=== PATIENT | female | born 1965 | race Caucasian/White ===

== ENCOUNTER 2017-05-10 07:38 | Day surgery (SDC) | payer BC, OTHER ==
--- NOTE | 2017-04-29 09:18 | HP ---
HISTORY AND PHYSICAL: DATE OF SURGERY/ADMISSION: 05/10/17 [facility] DATE OF OFFICE VISIT: 04/25/17 ATTENDING SURGEON: Dr. Lock (DICTATED BY SHAJI MORGAN) PROCEDURE: Right wrist ganglion cyst resection. CHIEF COMPLAINT: Right wrist pain. 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 The patient states that this pain has gotten worse over time and has elected to undergo a right ganglion cyst removal on 05/10/17. PAST MEDICAL HISTORY: 1. Depression. 2. Anxiety. 3. Chronic headache. PAST SURGICAL HISTORY: 1. Neck fusion approximately 10 years ago. 2. Appendectomy. 3. Hysterectomy. 4. Kidney stone resection. 5. Rhinoplasty after trauma. 6. [place] teeth extraction. MEDICATIONS: 1. Wellbutrin 300 mg p.o. daily. 2. Motrin p.r.n. ALLERGIES: 1. CLARITHROMYCIN. 2. CYMBALTA. 3. ERYTHROMYCIN. 4. NAPROXEN. 5. ULTRAM. 6. VALIUM. FAMILY MEDICAL HISTORY: Mother with lung cancer. SOCIAL HISTORY: Positive for rare alcohol use. No tobacco use. REVIEW OF SYSTEMS: General: Negative for fevers, chills, night sweats. No difficulty with anesthesia. HEENT: Positive for chronic headache. Negative for lightheadedness or syncopal episodes. Integument: Negative for abrasions, lesions or open wounds or sores. Cardiothoracic: Negative for hypertension, chest pain, palpitations or edema. Pulmonary: Negative for shortness of breath with exertion, or COPD. GI: Negative for nausea, vomiting, constipation , diarrhea or GERD. : Negative for nocturia, urinary frequency, urgency. Positive for history of kidney stones. Negative for history of UTI. Musculoskeletal: Positive for right wrist pain. Neuro: Negative for paresthesias or numbness. No history of seizure, stroke or epilepsy. Endocrine : Negative for diabetes, thyroid disease. Hematologic: Negative for easy bruising, anemia or excessive bleeding. No history of DVT or PEs. Infectious Disease: Negative for MRSA, hepatitis C or HIV. PHYSICAL EXAMINATION GENERAL: Well appearing, in no acute distress. Alert and oriented. VITAL SIGNS: Height 63 inches, weight was 188 pounds, pulse 72, blood pressure 118/78, respirations 16, temperature 97.2. BMI 29.8. HEENT: Normocephalic, atraumatic. EOMI. PULMONARY: Lungs clear to auscultation bilaterally. No crackles, rhonchi or wheezes CARDIAC: Regular rate and rhythm. No murmurs, gallops or rubs. ABDOMEN: Negative CVA tenderness bilaterally. MUSCULOSKELETAL: Positive swelling noted over the right forearm near the distal radius approximately 4 cm in diameter. Positive localized tenderness over the distal radius and the palm corresponding with known fist. Radial and ulnar pulses are 2+ bilaterally. Burr Bench Hand strength equal bilaterally. Full range of motion of the wrists and fingers bilaterally. NEUROLOGIC: Alert and oriented x3. Cranial nerves grossly intact. Sensation intact to light touch upper extremities. STUDIES: MRI of the right wrist taken on 04/04/17 shows normal degeneration of the volar aspect of the scapholunate ligament with ganglion arising off the radial and palmar aspect of the radiocarpal joint. IMPRESSION: The patient is a 51-year-old female who elected to undergo a right ganglion cyst resection on 05/10/[address] Lock. Postoperative pain medications of Tylenol #3 were called into the patient's pharmacy for postoperative pain management. She will follow up with Dr. Lock in approximately 10 days postoperatively for incision check and suture removal. She has no other questions at this time; however, will call us if any arise. SHAJI MORGAN [id number]/[facility] #: [id number] [place]
[~2017-05-10 07:38] MED LIST: Buffered Lidocaine 0.9% SYRIN* 5 ML/SYR SYRINGE INTRADERM ONE
[2017-05-10] MEDS ORDERED: fentaNYL* 50 MCG/ML 2 ML VIAL (100 MCG VIAL) ONE (08:32)
[2017-05-10] MEDS ORDERED: Propofol* 10 MG/ML 20 ML BTL IV PUSH ONE (08:33)
[2017-05-10] MEDS ORDERED: Lidocaine 2% PF * 5 ML VIAL ONE (08:33)
[2017-05-10] MEDS ORDERED: Lidocaine 1% INJ* 10 MG/ML 30 ML SDV ONE (08:45)
[2017-05-10 09:51] VITALS: BP 141/86
--- NOTE | 2017-05-11 06:32 | OP ---
DATE OF OPERATION: 05/10/17 [facility] DATE OF : 61 SURGEON: Meg Lock MD CAD OPERATOR: SHAJI Raymond ANESTHESIOLOGIST: Rolando Kaplan MD ANESTHESIA: Local, MAC PRE-OP DIAGNOSIS: Right wrist ganglion. POST-OP DIAGNOSIS: Right wrist ganglion. OPERATIVE PROCEDURE: Removal right wrist ganglion. ESTIMATED BLOOD LOSS: Zero. TOURNIQUET TIME: Approximately 10 minutes. INDICATIONS FOR PROCEDURE: Tiffany is a 51-year-old woman with a painful mass on the volar radial aspect of her right wrist. MRI shows a ganglion cyst. She presents for excision of the ganglion from the right wrist. DESCRIPTION OF PROCEDURE: The patient was brought to the operating room, was given a sedation anesthetic and a local infiltration with 10 cc of 1% plain lidocaine. The skin of her right hand and forearm was prepped and draped in usual sterile fashion. The hand and forearm were exsanguinated and the tourniquet elevated to 250 mmHg. A Chevron incision was made centered over the mass. We dissected bluntly through the subcutaneous tissue. The radial artery was dissected out and carefully retracted by the surgical attendant, Teresa Cole. There was a broad- based ganglion cyst emanating from the volar radial wrist capsule. This was removed with a portion of the wrist capsule and the edges of the capsule were cauterized with the Bovie. The wound was irrigated and the skin edges reapproximated with 4-0 nylon suture. The wound was dressed with Xeroform, 4 x 4, Webril, and an Jase wrap. The patient tolerated the procedure well and was brought to the recovery room in good condition. [id number]/[facility] #: [id number] [facility]
== END 2017-05-10 10:00 | disposition home or self-care (01) ==
LOC: OREAST 07:38
PROVIDERS: ATTEND Orthopaedic Surgery
DX: M67.431 Ganglion, right wrist (principal)
CPT/HCPCS: 88304; J2001; J2704; J3010

== ENCOUNTER 2020-01-14 05:34 | Day surgery (SDC) | payer OTHER ==
[~2020-01-14 05:34] MED LIST changes: -Buffered Lidocaine 0.9% SYRIN* 5 ML/SYR SYRINGE INTRADERM ONE; +Buffered Lidocaine 1% SYRIN* 1 ML/SYRINGE INTRADERM ONE
[2020-01-14] MEDS ORDERED: Acetaminophen TAB* 325 MG PO ONE (06:00)
[2020-01-14] MEDS ORDERED: Lactated Ringers 1000 ML Bag* 1,000 ML IV SCH (06:00)
[2020-01-14] MEDS ORDERED: Acetaminophen TAB* 325 MG ONE (06:01)
[2020-01-14] MEDS ORDERED: ceFAZolin 2 GM in NS PREMIX(*) 2 GM/100 ML BAG IVPB ONE (06:01)
[2020-01-14] MEDS ORDERED: Buffered Lidocaine 1% SYRIN* 1 ML/SYRINGE INTRADERM ONE (06:01)
[2020-01-14] MEDS ORDERED: Lidocaine 2% PF * 5 ML VIAL ONE (06:57)
[2020-01-14] MEDS ORDERED: Midazolam* 1 MG/ML 2 ML VIAL (2 MG) ONE (06:57)
[2020-01-14] MEDS ORDERED: fentaNYL* 50 MCG/ML 5 ML VIAL (250 MCG VIAL) ONE (06:57)
[2020-01-14] MEDS ORDERED: Propofol* 10 MG/ML 20 ML BTL ONE (06:57)
[2020-01-14] MEDS ORDERED: Rocuronium* 10 MG/ML VIAL ONE (07:00)
[2020-01-14] MEDS ORDERED: Bupivacaine 0.5%* 50 ML MDV VIAL ONE (07:16)
[2020-01-14] MEDS ORDERED: Ondansetron INJ* 2 MG/ML VIAL ONE (07:39)
[2020-01-14] MEDS ORDERED: Ketorolac INJ* 30 MG/ML 1 ML VIAL ONE (07:39)
[2020-01-14] MEDS ORDERED: Dexamethasone IV* 4 MG/ML 1 ML (4 MG) ONE (07:39)
[2020-01-14] MEDS ORDERED: PROCHLORPERAZINE INJ 5 MG/ML 2 ML VIAL IV PRN (07:53)
[2020-01-14] MEDS ORDERED: diPHENhydraMINE IV* 50 MG/ML 1 ml VIAL (BENADRYL) IV PRN (07:53)
[2020-01-14] MEDS ORDERED: Naloxone* 0.4 MG/ML 1 ML VIAL IV PRN (07:53)
[2020-01-14] MEDS ORDERED: HYDROmorphone INJ1* 1 MG/ML SYRINGE IV PRN (07:53)
[2020-01-14] MEDS ORDERED: oxyCODONE TAB* 5 MG TAB PO PRN (07:53)
[2020-01-14 09:28] VITALS: BP 155/94
--- NOTE | 2020-01-14 09:38 | OP ---
Operative Report - Blank - Operative Report Date of Operation: 01/14/20 Note: PATIENT: Tiffany Hercules DATE OF : 1965 DATE OF SURGERY: 01/14/2020 SURGEON: Jean Díaz MD [employer] ARCHITECT: SHAJI Aden, whos assistance was necessary for positioning, retraction, help with instrumentation, and closure. ANESTHESIOLOGIST: Dr. 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 ANESTHESIA: LMA IMPLANTS: none TOURNIQUET TIME: Less than 30 minutes with a well-padded thigh tourniquet at 250mmHg SPECIMENS: none ESTIMATED BLOOD LOSS: minimal COMPLICATIONS: none STATUS: Stable from the operating room to the recovery room and then home. 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 Both operative and non operative treatment alternatives were reviewed. Further, the nature and risks of surgery were reviewed in careful detail, in the office as well as the pre-operative holding area. Our discussions regarding the risks of surgery included, but were not limited to, infection, wound problems, nerve injury, neuroma, RSD, persistent symptoms, blood clot, persistent symptoms, failure of the surgery, and even the remote chance of catastrophic complication. DESCRIPTION OF PROCEDURE: The patient was seen in the preoperative holding unit and informed written consent was obtained. The appropriate extremity was marked. The patient was then brought to the operating room and carefully positioned on the operating room table. Anesthesia was induced. All bony prominences were padded with great care. A well-padded thigh tourniquet was placed. A chlorhexidine based pre- scrub was performed followed by a chloraprep prep and drape in standard sterile fashion. A surgical safety pause was then conducted in which we confirmed the appropriate patient, extremity, planned procedure, availability of equipment, indication and administration of prophylactic antibiotics, and DVT prophylaxis in the form of a compression boot on the non-surgical extremity. I began with Esmarch exsanguination of the limb and inflated the tourniquet. I then made an approximately 3-cm incision at the posteromedial calf. I carried the dissection through the soft tissue and divided the crural fascia longitudinally. I then exposed the fascia of the gastrocnemius muscle. Great care was taken to protect the sural nerve throughout this procedure. I cleared all adhesions from the posterior aspect of the gastrocnemius fascia and then transected this in its entirety from medially to laterally. I then identified the plantaris tendon, which was also tight medially. This was transected. These procedures had the effect of improving the ankle dorsiflexion to approximately 10 degrees. I then again confirmed that the sural nerve was in continuity. We irrigated copiously. We then used #3-0 Monocryl for the subdermal layer and danyel for the skin. A sterile dressing was applied followed by a splint with the ankle in neutral position. The patient was then awakened from anesthesia and transferred to the recovery room in stable condition. There were no complications. All needle and sponge counts were correct at the end of the case. ATTESTATION: I attest I was present and scrubbed and performed the critical portions of the procedure myself. POSTOPERATIVE PLAN: The patient will remain [id number] for two weeks. At that time, sutures will be removed and Steri-Strips applied and transition into a tall Aircast boot and begin weight-bearing at that time. The patient will remain in the boot until four to six weeks postoperatively. We will begin physical therapy after the first postoperative visit.
== END 2020-01-14 09:27 | disposition home or self-care (01) ==
LOC: OR 05:34
PROVIDERS: ATTEND Orthopaedic Surgery
DX: M76.62 Achilles tendinitis, left leg (principal); M62.472 Contracture of muscle, left ankle and foot; E78.00 Pure hypercholesterolemia, unspecified; M06.9 Rheumatoid arthritis, unspecified; F41.9 Anxiety disorder, unspecified
CPT/HCPCS: A9270-GY; J0690; J1100; J1885; J2250; J2405; J2704; J3010; J3490